=== PATIENT | male | born 1980 | race Caucasian/White ===

== ENCOUNTER 2021-03-19 09:41 | Outpatient (CLI) | payer OTHER | END 2021-03-19 09:42 | disposition home or self-care (01) | LOC: CSHWCC 09:41 | PROVIDERS: ATTEND Nurse Practitioner Family | DX: T25.221D Burn of second degree of right foot, subsequent encounter (principal); T31.0 Burns involving less than 10% of body surface; T54.91XD Toxic effect of unspecified corrosive substance, accidental (unintentional), subsequent encounter; E66.3 Overweight; G91.1 Obstructive hydrocephalus; I10 Essential (primary) hypertension | CPT/HCPCS: 99202; G0463 ==